=== PATIENT | male | born 1960 | race Caucasian/White ===

== ENCOUNTER 2017-08-09 09:15 | Day surgery (SDC) | payer OTHER ==
[2017-08-08 16:00] VITALS: BMI 34.6
[~2017-08-09] VITALS: Ht 175.3 cm; Wt 105.7 kg
[~2017-08-09 09:15] MED LIST: CEFAZOLIN 2 GM/50 ML (PMX) 50 ML IVPB SCH; SOD CHLORIDE 0.9% 1,000 ML IV SCH
[2017-08-09] MEDS ORDERED: LOSA50TA6 PO (09:53)
[2017-08-09 10:17] VITALS: BP 138/78; PULSE 70; RESP 16
[2017-08-09 10:42] VITALS: Ht 175.3 cm; Wt 105.7 kg
[2017-08-09] MEDS ORDERED: BUPIVACAINE 0.25% (MPF) 30 ML INJ ONE (11:34)
[2017-08-09] MEDS ORDERED: SUCCINYLCHOLINE CHLORIDE 100 MG/5 ML SYG IV ONE (11:41)
[2017-08-09] MEDS ORDERED: ROCURONIUM 50 MG INJ ONE (11:41)
[2017-08-09] MEDS ORDERED: GLYCOPYRROLATE 0.4 MG INJ ONE (11:41)
[2017-08-09] MEDS ORDERED: LIDOCAINE 2% (SDV) 5 ML INJ ONE (11:41)
[2017-08-09] MEDS ORDERED: MEPERIDINE 100 MG INJ ONE (11:41)
[2017-08-09] MEDS ORDERED: PROPOFOL 20 ML ONE (11:41)
[2017-08-09] MEDS ORDERED: NEOSTIGMINE 3 MG/3 ML SYRINGE ONE (11:41)
[2017-08-09] MEDS ORDERED: CEFAZOLIN 1 GM INJ ONE (11:56)
--- NOTE | 2017-08-09 12:23 | OPR ---
Date/Time of Note Date/Time of Note DATE: 08/09/17 TIME: 12:20 Operative Report Procedure Date: Aug 09, 2017 Preoperative Diagnosis left shoulder basal cell cancer Postoperative Diagnosis same Operation/Procedure Performed 1. wide local excision of basal cell cancer 6 x 10 cm 2. localized adjacent tissue transfer with the use of skin flaps 60 sq cm defect 3. therapeutic injection of subcutaneous local anesthesia Surgeon see signature line [employer] none Anesthesia Type: general Estimated Blood Loss: 10 - 50 ml's Transfusion none Specimen left shoulder basal cell cancer single short super single long lateral skin posterior Grafts/Implants none Complications none Pt Condition Post Procedure: stable Indications This is a 48-year-old male who had prior excision of his left shoulder mass was found to have basal cell cancer. He is here for definitive wide local excision of the basal cell cancer. Risks alternatives benefits and percent were discussed the patient. Patient's best understanding consents to the operation. Procedure Description Patient taken to the OR and prepped and draped in usual sterile fashion. Surgical timeout was performed. IV antibiotics given. Large wide local excision was made over the left basal cell cancer shoulder area due to prior scarring and difficulty determining the border of the basal cell cancer. Elliptical incision was made to excise the basal cell cancer. Dissection cautery was carried onto the deeper tissues. Surgical markings of short superior long lateral skin posterior. Hemostasis established. Due to the very large tissue defect localized adjacent tissue transfer with these of skin flaps were performed. Multilayer closure with interrupted 2-0 Vicryl and skin mera. Therapeutic subcutaneous local anesthesia was injected throughout the incision site. Dressings were applied. Ingrid OVIEDO Aug 09, 2017 12:23
[2017-08-09 12:26] VITALS: BP 157/102; PULSE 80; RESP 21
[2017-08-09] MEDS ORDERED: HYDROCODONE/APAP (5/325) TAB PO ONE (12:30)
[2017-08-09 12:31] VITALS: BP 160/85; PULSE 80; RESP 21
[2017-08-09] MEDS ORDERED: hydrALAzine 20 MG INJ IV PRN (13:00)
[2017-08-09] MEDS ORDERED: ONDANSETRON 4 MG INJ IV PRN (13:00)
[2017-08-09] MEDS ORDERED: EPHEDrine SULFATE 50 MG/5 ML SYG IV PRN (13:00)
[2017-08-09] MEDS ORDERED: DIPHENHYDRAMINE 50 MG INJ IV PRN (13:00)
[2017-08-09] MEDS ORDERED: METOCLOPRAMIDE 10 MG INJ IV PRN (13:00)
[2017-08-09] MEDS ORDERED: OXYCODONE/ACETAMINOPHEN (5/325) TAB PO PRN ×2 (13:00)
[2017-08-09] MEDS ORDERED: HYDROmorphONE (0.2 MG/ML) 10ML SYG IV PRN ×3 (13:00)
[2017-08-09] MEDS ORDERED: FENTAnyl 50 MCG/ML VIAL IV PRN ×3 (13:00)
[2017-08-09] MEDS ORDERED: LABETALOL HCL 20MG INJ IV PRN (13:00)
[2017-08-09] MEDS ORDERED: MIDAZOLAM 1 MG/ML 2 ML INJ IV PRN (13:00)
[2017-08-09] MEDS ORDERED: MEPERIDINE 25 MG INJ IV PRN (13:00)
[2017-08-09 13:11] VITALS: BP 146/85; PULSE 67; RESP 16
== END 2017-08-09 14:20 | disposition home or self-care (01) ==
LOC: SDS 09:15
PROVIDERS: ATTEND Surgery
DX: C44.619 Basal cell carcinoma of skin of left upper limb, including shoulder (principal); I10 Essential (primary) hypertension
CPT/HCPCS: 14301; 88305; J0690; J2175; Z7512; Z7610; J2710